=== PATIENT | male | born 1970 | race African-American/Black ===

== ENCOUNTER 2021-04-29 09:33 | Emergency (ER) | payer MEDICAID, SELFPAY ==
--- NOTE | ~2021-04-29 | CT_ITS ---
EXAMINATION: CT HEAD WITHOUT CONTRAST CLINICAL INFORMATION: Hand numbness COMPARISON: None TECHNIQUE: Contiguous axial imaging was performed from the skull base to vertex without intravenous administration of contrast. This CT examination was performed using dose optimization techniques as appropriate, variously including the following: *Automated exposure control *Adjustment of mA and/or kV according to patient size (this includes techniques or standardized protocols for targeted exams where dose is matched to indication/reason for exam; i.e. extremities or head) *Use of iterative reconstruction technique DLP: 782 mGy-cm FINDINGS: There is no evidence of acute intracranial hemorrhage or territorial infarction. No abnormal mass effect or midline shift is seen. [place] to white matter differentiation is well preserved. No extra-axial fluid collections are identified. The ventricles are normal in size. There is no abnormal attenuation within the brain parenchyma. The osseous structures and soft tissues are normal. There is small polyps or retention cysts bilateral maxillary sinus. Rest paranasal sinuses and mastoid air cells are well-aerated and clear. CT/CT head/brain wo con IMPRESSION: No acute intracranial process seen.
[2021-04-29 09:40] VITALS: BP 192/124; PULSE 102; RESP 22; TEMP 36.1; O2SAT 98; BMI 56.0
[2021-04-29 10:02] VITALS: BP 136/97; PULSE 95; RESP 14; O2SAT 97
[2021-04-29 10:43] LABS: Glucose, Whole Blood 329 mg/dL (60-115)
--- NOTE | 2021-04-29 10:55 | PC.NURSE ---
Pt alert and oriented x3, BP on triage was 192/124, current BP 136/97. Pt states he has been having non radiating numbness and tingling in bilat hands x1 month that has gotten progressively worse. He also states he has been having increased thirst and urination. Pt was on Lasix but has not taken it in greater than 6 months because current does not have a PCP. He also states He is on Hydralazine but is not consistent with taking it. His current POC is 329, he denies sob/difficulty breathing. no other symptoms reported. Pt difficult stick, IV established via ultra sound, labs drawn, fluids hung. Pt in no apparent distress. at bedside.
[2021-04-29 11:02] LABS: MANUAL DIFF FLAG NO
[2021-04-29 11:03] LABS: Basophils Percent Auto 0.5 % (0-2); Eosinophils Absolute Auto 0.1 X10*3/uL (0.0-0.4); Eosinophils Percent Auto 1.1 % (0-4); Hematocrit 46.3 % (42-52); Hemoglobin 14.9 g/dl (14.0-18.0); Imm Gran Abs Auto 0.06 X10*3/uL (0.00-0.03); Lymphocytes Absolute Auto 1.2 X10*3/uL (1.2-4.9); Lymphocytes Percent Auto 19.5 % (20-40); Mean Corpuscular HGB Conc 32.2 g/dl (31.0-36.0); Mean Corpuscular Hemoglobin 28.2 pg (27.0-33.0); Mean Corpuscular Volume 87.7 fL (80-98); Mean Platelet Volume 10.3 fL (9.4-12.4); Monocytes Absolute Auto 0.4 X10*3/uL (0.1-1.2); Monocytes Percent Auto 6.6 % (2-11); Neutrophils Absolute Auto 4.4 X10*3/uL (2.0-8.3); Neutrophils Percent Auto 71.3 % (45-73); Platelet Count 218 X10*3/uL (160-400); Red Blood Count 5.28 X10*6/uL (4.60-5.80); Red Cell Distribution Width 12.9 % (11.0-16.0); White Blood Count 6.2 X10*3/uL (4.8-10.8)
[2021-04-29 11:08] LABS: Prothrombin Time 11.3 SEC (9.9-13.0)
[2021-04-29 11:10] LABS: Partial Thromboplastin Time 34.3 SEC (24.1-38.0)
--- NOTE | 2021-04-29 11:14 | ED_ITS ---
HPI - Neuro Symptoms/Deficit General Chief Complaint: Neuro Symptoms/Deficit Stated Complaint: hand numbness Time Seen by Provider: 04/29/21 10:32 Source: patient Mode of arrival: ambulatory Limitations: no limitations History of Present Illness HPI Narrative: Patient presents to ED for bilateral hand numbness for 1 month. Patient states also increased thirst and increased urinary frequency. Patient also states sometimes he will have blurry vision over the past month. Patient states family history of diabetes and he was formal last year was borderline diabetic. Patient admits to being morbidly obese. Patient denies any slurred speech, loss of vision, paralysis of extremity, chest pain, or shortness of b reath. Related Data Previous Rx's Medication Instructions Recorded metformin 500 mg PO BID 30 Days #60 tab 04/29/21 Allergies Allergy/AdvReac Type Severity Reaction Status Date / Time Penicillins Allergy Unknown Verified 04/29/21 09:45 Review of Systems Review of Systems: Yes all other systems are reviewed and are negative Constitutional: Constitutional: Reports as per HPI and Reports no additional constitutional complaints Eyes: Eyes: Reports as per HPI, Reports no additional eye complaints and Reports blurry vision (Intermetent for the past month. None presently) ENT: Reports system reviewed and no additional complaints, except as documented and Reports as per HPI Cardiovascular: Cardiovascular: Reports as per HPI and Reports no additional cardiovascular complaints Respiratory: Respiratory: Reports as per HPI and Reports no additional respiratory complaints Gastrointestinal: Gastrointestinal: Reports as per HPI and Reports no additional gastrointestinal complaints Genitourinary: Genitourinary: Reports no additional male genitourinary complaints, Reports as per HPI and Reports urinary frequency (Increased) Musculoskeletal: Musculoskeletal: Reports no additional musculoskeletal complaints and Reports as per HPI Neurologic: Reports system reviewed and no additional complaints, except as documented and Reports as per HPI Psychiatric: Psychiatric: Reports no additional psychiatric complaints and Reports as per HPI PMF Past Medical History Medical History (Updated 04/29/21 @ 14:30 by JAMES Bhatt) High cholesterol HTN (hypertension) Estrella-Fernie syndrome Torn meniscus Social History Social History Alcohol intake: former Patient Tobacco Use Status: Former Tobacco user Advance Directives: Yes Advance Directives Information Provided: Yes Advance Directives on File: No Physical Exam Vital Signs: Vital Signs: Last Vital Signs Temp 96.9 F 04/29/21 09:40 Pulse 75 04/29/21 13:18 Resp 17 04/29/21 13:18 BP 125/85 04/29/21 13:18 Pulse Ox 96 04/29/21 13:18 Body Mass Index 56.0 Const: General: cooperative, healthy appearing, comfortable, no acute distress, well developed, alert and awake; No Physically active Orientation/consciousness: patient oriented x3 HENMT: Head: Yes normal to inspection, Yes No palpable skull fracture present, Yes normocephalic and Yes atraumatic Eyes: General: appearance normal, both eyes and all related structures Vi sual Loya: normal visual loya by confrontation Alignment and Position: alignment normal Periorbital: periorbital findings normal Eyelids: Yes eyelids normal Conjunctivae: conjunctivae normal Sclerae: sclerae normal Corneas: corneas normal Pupils: Equal, round and reactive pupils present Neck: Neck: Yes normal visual inspection, Yes full ROM, Yes no lymphadenopathy, Yes no meningeal signs, Yes trachea midline, Yes supple and No tender Chest: Chest palpation & inspection: normal inspection of the chest and normal palpation of entire chest wall Resp: Effort & Inspection: normal respiratory effort and able to speak in complete sentences Auscultation: clear to auscultation bilaterally Cardio: Jugular venous distension: no JVD Heart sounds: S1 normal heart sound present and S2 normal heart sound present GI: Inspection: Yes normal to inspection and No abdominal wall ecchymosis Palpation (GI): Soft to palpation, not firm, nontender, no guarding and not rigid : General: No CVA tenderness and Yes no CVA tenderness Back/Spine/Pelvis: Back: no CVA tenderness, No CVA tenderness and No back tend erness Skin: General skin exam: no rashes or lesions noted and elasticity normal Neuro: Other: Negative for facial droop. All extremities equal strength in 5+. Negative slurred speech. Negative pronator drift. [id number] and rapid hand movement intact. Negative Romberg. Patient has sensation to touch on palpation of both hands and all fingers. Capillary refills intact. Pulses intact. Upper extremities negative for swelling, redness, or edema. General: patient oriented x3, gait normal, no meningeal signs and CN's II-XI intact bilaterally Cranial nerves: Yes CN's II-XII intact bilaterally and Yes Equal, round and reactive pupils present Extrem: Other: All extremities normal size. All extremities motor/vascular/neuro exam is intact. Psych: Appearance: grossly normal, well kempt and not disheveled Course Course Course Narrative: Patient fingerstick is 349. Most likely patient has a new diabetic causing paresthesia and intermittent blurry vision for a month. Do labs neck should patient is not in DKA and will do head CT as a formality. CPK magnesium ordered. UA ordered. Reevaluation(s) Reevaluation #1: Patient feel CT shows hyperglycemia of 329. Patient given fluids. Patient's neuro exam is intact. Negative for any neuro deficits. EKG ordered. Acetone negative. Patient is not in DKA. Patient's electrolytes are normal. Patient not in rhabdomyolysis. EKG negative STEMI. Patient's troponin 5.8 after 1 month of numbness and tingling in bilateral upper extremities without any chest pain or shortness of breath. No need for repeat troponin. Not suspecting any heart attack. Negative for any neuro deficit. Time: 10:56 Reevaluation #2: Head CT came back normal. Patient will be discharged on metformin p.o.. Patient educated on proper diet to control diabetes. Patient informed assess to the to have pet counselor, rn patient services, and advertising material distributor due to his diagnosis of diabetes. Patient informed he will need to follow-up with his PCP to see if he needs more diabetes medications such as short-acting insulin. UA negative for UTI. Patient was hypertensive due to small size blood pressure cuff. Patient was a large man so large cuff was used and he had normal blood pressure and vital signs. Time: 14:25 MDM - Neuro Symptoms/Deficit MDM Narrative Medical decision making narrative: New onset diabetes. Diabetic neuropathy Lab Data Result diagrams: 04/29/21 10:56 04/29/21 10:56 Labs: Lab Results 04/29/21 04/29/21 04/29/21 Range/Units 10:39 10:56 10:56 WBC 6.2 (4.8-10.8) X10*3/uL RBC 5.28 (4.60-5.80) X10*6/uL Hgb 14.9 (14.0-18.0) g/dl Hct 46.3 (42-52) % MCV 87.7 (80-98) fL MCH 28.2 (27.0-33.0) pg MCHC 32.2 (31.0-36.0) g/dl RDW 12.9 (11.0-16.0) % Plt Count 218 (160-400) X10*3/uL MPV 10.3 (9.4-12.4) fL Immature Gran % (Auto) 1.0 H (0.0-0.4) % Neut % (Auto) 71.3 (45-73) % Lymph % (Auto) 19.5 L (20-40) % [place] % (Auto) 6.6 (2-11) % Eos % (Auto) 1.1 (0-4) % Baso % (Auto) 0.5 (0-2) % Lymph # (Auto) 1.2 (1.2-4.9) X10*3/uL [place] # (Auto) 0.4 (0.1-1.2) X10*3/uL Eos # (Auto) 0.1 (0.0-0.4) X10*3/uL Baso # (Auto) 0.0 (0.0-0.2) X10*3/uL Abs Immat Gran (auto) 0.06 H (0.00-0.03) X10*3/uL Absolute Neuts (auto) 4.4 (2.0-8.3) X10*3/uL Absolute Nucleated RBC 0.000 (0.0-0.012) X10*3/uL Nucleated RBC % (auto) 0.0 (0.0-0.2) /100WBC PT (9.9-13.0) SEC INR (0.9-1.1) APTT (24.1-38.0) SEC Sodium 138 (135-145) mmol/L Potassium 4.5 (3.3-5.1) mmol/L Chloride 103 (96-108) mmol/L Carbon Dioxide 25 (22-29) mmol/L Anion Gap 15 (12-20) BUN 10 (9-16) mg/dL Creatinine 1.01 (0.5-1.4) mg/dL Estim Creat Clear Calc 164.0 Estimated GFR > 60 POC Glucose 329 H (60-115) mg/dL Random Glucose 348 H (60-115) mg/dL Calcium 9.3 (8.4-10.2) mg/dL Magnesium 1.8 (1.6-2.6) mg/dL Total Bilirubin 0.8 (0.0-1.0) mg/dL AST 21 (5-37) U/L ALT 29 (0-40) U/L Alkaline Phosphatase 138 H (39-117) U/L Total Creatine Kinase 141 (38-174) U/L Troponin I High Sens (<3.5-35.0) ng/L Total Protein 7.2 (6.5-8.0) g/dL Albumin 4.3 (3.5-5.0) g/dL Urine Color Urine Appearance Urine pH (5.0-8.0) Ur Specific [place] (1.005-1.025) Urine Protein (NEG-TRACE) MG/DL Urine Glucose (UA) (NEG) MG/DL Urine Ketones (NEG) MG/DL Urine Blood (NEG) Urine Nitrite (NEG) Ur Leukocyte Esterase (NEG) Urine RBC (0) /HPF Urine WBC (0-4) /HPF Ur Squamous Epith Cells /LPF Urine Bacteria /LPF Acetone, Qual Negative (Negative) 04/29/21 04/29/21 04/29/21 Range/Units 10:56 10:56 11:49 WBC (4.8-10.8) X10*3/uL RBC (4.60-5.80) X10*6/uL Hgb (14.0-18.0) g/dl Hct (42-52) % MCV (80-98) fL MCH (27.0-33.0) pg MCHC (31.0-36.0) g/dl RDW (11.0-16.0) % Plt Count (160-400) X10*3/uL MPV (9.4-12.4) fL Immature Gran % (Auto) (0.0-0.4) % Neut % (Auto) (45-73) % Lymph % (Auto) (20-40) % [place] % (Auto) (2-11) % Eos % (Auto) (0-4) % Baso % (Auto) (0-2) % Lymph # (Auto) (1.2-4.9) X10*3/uL [place] # (Auto) (0.1-1.2) X10*3/uL Eos # (Auto) (0.0-0.4) X10*3/uL Baso # (Auto) (0.0-0.2) X10*3/uL Abs Immat Gran (auto) (0.00-0.03) X10*3/uL Absolute Neuts (auto) (2.0-8.3) X10*3/uL Absolute Nucleated RBC (0.0-0.012) X10*3/uL Nucleated RBC % (auto) (0.0-0.2) /100WBC PT 11.3 (9.9-13.0) SEC INR 1.0 (0.9-1.1) APTT 34.3 (24.1-38.0) SEC Sodium (135-145) mmol/L Potassium (3.3-5.1) mmol/L Chloride (96-108) mmol/L Carbon Dioxide (22-29) mmol/L Anion Gap (12-20) BUN (9-16) mg/dL Creatinine (0.5-1.4) mg/dL Estim Creat Clear Calc Estimated GFR POC Glucose (60-115) mg/dL Random Glucose (60-115) mg/dL Calcium (8.4-10.2) mg/dL Magnesium (1.6-2.6) mg/dL Total Bilirubin (0.0-1.0) mg/dL AST (5-37) U/L ALT (0-40) U/L Alkaline Phosphatase (39-117) U/L Total Creatine Kinase (38-174) U/L Troponin I High Sens 5.8 (<3.5-35.0) ng/L Total Protein (6.5-8.0) g/dL Albumin (3.5-5.0) g/dL Urine Color YELLOW Urine Appearance CLEAR Urine pH 6.0 (5.0-8.0) Ur Specific [place] 1.020 (1.005-1.025) Urine Protein NEG (NEG-TRACE) MG/DL Urine Glucose (UA) >=1000 H (NEG) MG/DL Urine Ketones NEG (NEG) MG/DL Urine Blood NEG (NEG) Urine Nitrite NEG (NEG) Ur Leukocyte Esterase NEG (NEG) Urine RBC 0 (0) /HPF Urine WBC 1-4 (0-4) /HPF Ur Squamous Epith Cells 2+ /LPF Urine Bacteria NONE /LPF Acetone, Qual (Negative) ECG Data Interpretation: Normal sinus rhythm. Reticular 84. Pr interval 178. QRS 94. QTC 465. Negative STEMI Discharge Plan Discharge Clinical Impression: Diabetes, Peripheral neuropathy Patient Disposition: Home, Self-Care Instructions: Diabetic Hyperglycemia (ED), Diabetes and Exercise (ED) Additional Instructions: Your blood work shows that you are a new onset diabetic. You will need metformin 500 mg b.i.d.. Please follow-up with your primary care provider for further management of your diabetes. Head CT scan came back negative for stroke. His labs came back negative for DKA. Blood work came back negative for any electrolyte abnormality or rhabdomyolysis. The urinalysis came back negative for urinary tract infection. Your EKG and blood work does not indicate heart attack. Return to the ED immediately for any chest pain, shortness of breath, dizziness, vomiting, fever, chills, blurry vision, wounds in the feet, abdominal pain, diarrhea, or any other concerning symptoms. Prescriptions: New metformin 500 mg tablet 500 mg PO BID 30 Days Qty: 60 RF: 0 Stand Alone Forms: Work/School Release Interventions: ED Discharge Assessment Last Done: 04/29/21 14:52 Discharge Date/Time: 04/29/21 14:52 Print Language: Ukrainian
[2021-04-29 11:21] VITALS: BP 132/84; PULSE 81; RESP 18; O2SAT 98
[2021-04-29 11:25] LABS: Acetone, serum QL Negative (Negative)
[2021-04-29 11:35] LABS: Alanine Aminotransferase 29 U/L (0-40); Albumin Level 4.3 g/dL (3.5-5.0); Alkaline Phosphatase 138 U/L (39-117); Anion Gap 15 (12-20); Aspartate Amino Transferase 21 U/L (5-37); Bilirubin Total 0.8 mg/dL (0.0-1.0); Blood Urea Nitrogen 10 mg/dL (9-16); Calcium 9.3 mg/dL (8.4-10.2); Carbon Dioxide 25 mmol/L (22-29); Chloride 103 mmol/L (96-108); Estimated Glomerular Filt Rate > 60; Glucose Random 348 mg/dL (60-115); Magnesium 1.8 mg/dL (1.6-2.6); Potassium 4.5 mmol/L (3.3-5.1); Sodium 138 mmol/L (135-145); Total Protein 7.2 g/dL (6.5-8.0)
[2021-04-29] MEDS: 0.9 % Sodium Chloride 1,000 ML 999 ML IV ×2 (11:38)
--- NOTE | 2021-04-29 11:40 | ECG_ITS ---
Test Reason : CP Blood Pressure : / mmHG Vent. Rate : 084 BPM Atrial Rate : 084 BPM P-R Int : 178 ms QRS Dur : 094 ms QT Int : 394 ms P-R-T Axes : 042 010 003 degrees QTc Int : 465 ms Normal sinus rhythm Minimal voltage criteria for LVH, may be normal variant Borderline ECG No previous ECGs available Referred By: Mihai Armijo Electronically Signed By:WOJCIECH JUAREZ
[2021-04-29 11:42] LABS: Troponin-I High Sensitivity 5.8 ng/L (<3.5-35.0)
[2021-04-29 12:25] LABS: Glucose Urine UA >=1000 MG/DL (NEG); Leukocyte Esterase Urine NEG (NEG); Nitrite Urine NEG (NEG); Urine Blood NEG (NEG); Urine Ketones NEG (NEG); Urine Protein NEG (NEG-TRACE)
[2021-04-29 12:32] LABS: Appearance Urine CLEAR; Color Urine YELLOW
[2021-04-29 12:54] LABS: RBC Urine 0 /HPF (0); Squamous Epithelial Cell Urine 2+ /LPF
[2021-04-29 13:18] VITALS: BP 125/85; PULSE 75; RESP 17; O2SAT 96
--- NOTE | 2021-04-29 13:20 | PC.NURSE ---
Fluids infusing, pt resting quietly, at bedside.
== END 2021-04-29 14:52 | disposition home or self-care (01) ==
PROVIDERS: Physician Assistant; Emergency Provider Emergency Medicine
DX: E11.40 Type 2 diabetes mellitus with diabetic neuropathy, unspecified (principal); I10 Essential (primary) hypertension; E78.5 Hyperlipidemia, unspecified; E66.01 Morbid (severe) obesity due to excess calories; L51.1 Stevens-Johnson syndrome; Z87.891 Personal history of nicotine dependence
CPT/HCPCS: 36415; 70450; 80053; 81001; 81003; 82009; 82550; 82947; 83735; 84484; 85025; 85610; 85730; 93005; 96360; 96361; 99284

== ENCOUNTER 2021-07-30 09:53 | Emergency (ER) | payer MEDICARE, MEDICAID, SELFPAY ==
--- NOTE | ~2021-07-30 | XR_ITS ---
EXAMINATION: BILATERAL KNEE X-RAY CLINICAL INFORMATION: Fall. Pain. COMPARISON: None TECHNIQUE: 4 views of each knee FINDINGS: Right: There is mild varus angulation at the knee joint. Bone alignment is otherwise normal. No fracture or dislocation is seen. 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 There is a small joint effusion. Left: There is mild varus angulation at the knee joint. Bone alignment is otherwise normal. No fracture or dislocation is seen. 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 There is a small joint effusion. There is soft tissue ossification posterior medial to the knee joint measuring 1.8 x 2.6 cm questionable for an ossified intra-articular loose body. XR/XR knee RT 4V IMPRESSION: No fracture or dislocation. Bilateral arthritis. Question ossified intra-articular loose body on the left.
--- NOTE | ~2021-07-30 | XR_ITS ---
EXAMINATION: BILATERAL KNEE X-RAY CLINICAL INFORMATION: Fall. Pain. COMPARISON: None TECHNIQUE: 4 views of each knee FINDINGS: Right: There is mild varus angulation at the knee joint. Bone alignment is otherwise normal. No fracture or dislocation is seen. 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 There is a small joint effusion. Left: There is mild varus angulation at the knee joint. Bone alignment is otherwise normal. No fracture or dislocation is seen. 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 There is a small joint effusion. There is soft tissue ossification posterior medial to the knee joint measuring 1.8 x 2.6 cm questionable for an ossified intra-articular loose body. XR/XR knee LT 4V IMPRESSION: No fracture or dislocation. Bilateral arthritis. Question ossified intra-articular loose body on the left.
--- NOTE | ~2021-07-30 | US_ITS ---
EXAMINATION: US VENOUS ULTRASOUND WITH DOPPLER LOWER EXTREMITY, LEFT CLINICAL INFORMATION: Left leg swelling. COMPARISON: None TECHNIQUE: Ultrasound of the deep veins is performed from the hip to the calf with compression sonography and color and pulse Doppler assessment. Spectral analysis with color-flow imaging is performed. FINDINGS: There is normal venous compression and respiratory variation and augmented flow. The visualized common femoral vein, superficial femoral vein, profunda femoral vein, popliteal vein, and the trifurcation region shows no evidence of deep venous thrombosis. There is no significant popliteal fossa cyst. There is a 5.9 x 2.3 x 3.8 cm complex fluid collection in the popliteal fossa with an adjacent 3.4 cm calcified structure. This corresponds to the lesion seen on x-ray. If the patient's symptoms persist, followup ultrasound in 5 days 7 days might be of value to exclude proximal propagation from a non-visualized calf vein. US/US venous duplex LE LT IMPRESSION: No DVT demonstrated in the left lower extremity. 5.9 x 2.3 x 3.8 cm complex fluid collection in the popliteal fossa with a 3.4 cm calcified structure. This corresponds to the lesion seen on x-ray. 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
--- NOTE | ~2021-07-30 | XR_ITS ---
EXAMINATION: XR CHEST CLINICAL INFORMATION: Shortness of breath on exertion. Swelling bilateral lower extremities. COMPARISON: None TECHNIQUE: Frontal view of the chest was obtained. FINDINGS: The cardiomediastinal silhouette is within normal limits for AP technique. No vascular congestion. No pulmonary edema. Lungs are hypoexpanded. No focal consolidation. XR/XR chest 1V IMPRESSION: Unremarkable examination.
[2021-07-30 10:43] VITALS: BP 181/115; PULSE 108; RESP 18; TEMP 36.7; O2SAT 96; BMI 54.1
--- NOTE | 2021-07-30 11:11 | ED_ITS ---
HPI - General Adult General Chief complaint: General Medical Stated complaint: swollen painful legs Time Seen by Provider: 07/30/21 11:00 Source: patient Mode of arrival: ambulatory Limitations: no limitations History of Present Illness HPI narrative: 50-year-old male past medical history significant for diabetes, o besity, HTN, neuropathy presents to the emergency department with multiple complaints, weakness, bilateral knee pain, increased lower extremity edema and shortness of breath on exertion X3 days and worsening. He states that this past Thursday 3 days ago he fell at home, he states he was walking today and he fell as though his right knee gave out on hand. He states he fell onto bilateral knees, he did not strike his head, did not lose consciousness. However, he states he felt so weak, he was unable to stand up from the ground. He states that took 3- 4 hours for him to get up from the ground. He has also noted that bilateral lower extremities have been progressively worsening in terms of swelling left worse than right. He states he is prescribed a water pill, however he is not compliant with his medications. He denies chest pain, nausea, vomiting, fevers, chills, abdominal pain, headache, vision changes. Onset (ago): day(s) (3) Location: left (knee) and right (knee) Radiation: non-radiation Severity: severe Severity scale (1-10): 10 Quality: constant Pain Consistency: constant Relieving factors: immobilization Exacerbating factors: movement Associated symptoms: shortness of breath and weakness Treatments prior to arrival: none Related Data Previous Rx's Medication Instructions Recorded metformin 500 mg tablet 500 mg PO BID 30 Days #60 tab 04/29/21 furosemide 40 mg tablet 40 mg PO DAILY #7 tab 07/30/21 Allergies Allergy/AdvReac Type Severity Reaction Status Date / Time Penicillins Allergy Unknown Verified 04/29/21 09:45 Review of Systems Review of Systems: Yes all other systems are reviewed and are negative PMFSH Past Medical History Attestation statement: The following information was validated with the patient. Source: old records reviewed and nursing notes reviewed Medical History Diabetes High cholesterol HTN (hypertension) Neuropathy Estrella-Fernie syndrome Torn meniscus Social History Social History Alcohol intake: former Patient Tobacco Use Status: Former Tobacco user Advance Directives: No Physical Exam Vital Signs: Vital Signs: Last Vital Signs Temp 98.0 F 07/30/21 10:43 Pulse 61 07/30/21 12:52 Resp 17 07/30/21 12:52 BP 130/85 07/30/21 12:54 Pulse Ox 96 07/30/21 10:43 Body Mass Index 54.1 Const: General: cooperative and no acute distress Nutritional Appearance: obese morbidly obese Orientation/consciousness: oriented to person and oriented to place Limitations: no limitations HENMT: Head: Yes normal to inspection, Yes normocephalic and Yes atraumatic Ears: external ears normal General nose exam: Normal external nose present Face and sinus: Yes normal facial exam Mouth: Normal oral and palatal mucosa present Throat: Yes posterior oropharynx normal Eyes: General: appearance normal, both eyes and all related structures Pupils: Equal, round and reactive pupils present Neck: Neck: Yes normal visual inspection, Yes no lymphadenopathy, Yes trachea midline and Yes supple Chest: Chest palpation & inspection: normal inspection of the chest and normal palpation of entire chest wall Resp: Effort & Inspection: normal respiratory effort and able to speak in comp lete sentences Auscultation: clear to auscultation bilaterally Cardio: Rate: regular rate Rhythm: regular rhythm Heart sounds: S1 normal heart sound present, S2 normal heart sound present and no murmurs GI: Inspection: Yes normal to inspection Palpation (GI): Soft to palpation, nontender and no guarding Auscultation: normal bowel sounds : General: Yes no CVA tenderness Back/Spine/Pelvis: Back: no CVA tenderness Skin: General skin exam: no rashes or lesions noted Neuro: General: oriented to person and oriented to place Cranial nerves: Yes CN's II-XII intact bilaterally and Yes Equal, round and reactive pupils present Cognition (Neuro): normal cognition Motor exam (neuro): 5/5 motor strength present throughout Extrem: Other: No overlying cellulites to b/l lower extremities. Limited ROM due to pain General: Yes normal to inspection, No full ROM (limited ROM to b/l knees due to pain ), Yes no calf tenderness, No calf tenderness and Yes edema (b /l from knee down 3+ non pitting edema L>R) Right upper extremity: normal to inspection and full ROM Left upper extremity: normal to inspection and full ROM Psych: Appearance: grossly normal Speech and movement: Normal speech and movement present Affect: normal affect Attitude: cooperative Thought process: Normal thought process present Thought content: Normal thought content present Course Course Course Narrative: 1300 Labs show no acute infection no anemia. CK 272 not concerning for rhabdo. Trop negative, BNP 40. Cxray normal Xray of b/l knees shows no fx or dislocations and shows a small joint effusion on R. knee. BP elevated, he was given lasix for edema and BP control. US negative for DVT shows L. Bakers cyst with calcified loose body Reevaluation(s) Reevaluation #1: Patient is ambulating well. He is feeling okay at this time. I have discussed his lab findings, his chest x-ray, his knee x-ray, in his left lower extremity ultrasound with the patient. He is clear and the plan. I also educated the patient on the importance of taking his medications as prescribed. He will be started on Lasix 40 mg for a week. He has been advised to stop his other diuretics, for a week. He can resume taking his home medications after he finishes Lasix. I have also advised this patient to follow-up with his primary care provider. Vital signs are stable, BP has improved 130/85. He is safe for discharge home with PCP follow-up. Medical Decision Making MDM Narrative Medical decision making narrative: 50-year-old male past medical history significant for hypertension, diabetes, morbid obesity, neuropathy presents to the emergency department with 3 days of progressively worsening bilateral knee pain status post fall, weakness, shortness of breath on exertion and bilateral lower extremity swelling. He states he fell, because his right knee gave out on him, he states this happens often. He states he fell in bilateral knees, he did not hit his head. He is not on blood thinners. He has medication noncompliance. Upon physical examination there is swelling to bilateral lower extremities 3+ nonpitting edema, without overlying cellulitis, not concerning for infection. He has no calf tenderness, negative Homans sign. There is limited range of motion to bilateral knees due to pain. Lungs are clear to auscultation, 5/5 strength upper and lower extremities. No focal neuro deficits. Head is atraumatic normocephalic. Plan at this time is to obtain a CBC, CMP, CK, UA, BNP, troponin, x-ray of bilateral knees, x-ray of chest, ultrasound of left lower extremity. Lab Data Result diagrams: 07/30/21 11:34 07/30/21 11:34 Labs: Lab Results 07/30/21 07/30/21 07/30/21 Range/Units 11:34 11:34 12:15 WBC 5.8 (4.8-10.8) X10*3/uL RBC 4.86 (4.60-5.80) X10*6/uL Hgb 13.8 L (14.0-18.0) g/dl Hct 42.6 (42-52) % MCV 87.7 (80-98) fL MCH 28.4 (27.0-33.0) pg MCHC 32.4 (31.0-36.0) g/dl RDW 13.1 (11.0-16.0) % Plt Count 223 (160-400) X10*3/uL MPV 10.2 (9.4-12.4) fL Immature Gran % (Auto) 0.3 (0.0-0.4) % Neut % (Auto) 67.8 (45-73) % Lymph % (Auto) 21.3 (20-40) % [place] % (Auto) 7.7 (2-11) % Eos % (Auto) 2.6 (0-4) % Baso % (Auto) 0.3 (0-2) % Lymph # (Auto) 1.2 (1.2-4.9) X10*3/uL [place] # (Auto) 0.5 (0.1-1.2) X10*3/uL Eos # (Auto) 0.2 (0.0-0.4) X10*3/uL Baso # (Auto) 0.0 (0.0-0.2) X10*3/uL Abs Immat Gran (auto) 0.02 (0.00-0.03) X10*3/uL Absolute Neuts (auto) 3.9 (2.0-8.3) X10*3/uL Absolute Nucleated RBC 0.000 (0.0-0.012) X10*3/uL Nucleated RBC % (auto) 0.0 (0.0-0.2) /100WBC Sodium 138 (135-145) mmol/L Potassium 4.5 (3.3-5.1) mmol/L Chloride 107 (96-108) mmol/L Carbon Dioxide 23 (22-29) mmol/L Anion Gap 13 (12-20) BUN 10 (9-16) mg/dL Creatinine 0.78 (0.5-1.4) mg/dL Estim Creat Clear Calc 208.1 Estimated GFR > 60 Random Glucose 174 H D (60-115) mg/dL Calcium 8.8 (8.4-10.2) mg/dL Total Bilirubin 1.1 H (0.0-1.0) mg/dL AST 24 (5-37) U/L ALT 18 (0-40) U/L Alkaline Phosphatase 104 D (39-117) U/L Total Creatine Kinase 272 H D (38-174) U/L Troponin I High Sens (<3.5-35.0) ng/L B-Natriuretic Peptide 40 (<100) pg/mL Total Protein 6.6 (6.5-8.0) g/dL Albumin 3.9 (3.5-5.0) g/dL 07/30/21 Range/Units 12:15 WBC (4.8-10.8) X10*3/uL RBC (4.60-5.80) X10*6/uL Hgb (14.0-18.0) g/dl Hct (42-52) % MCV (80-98) fL MCH (27.0-33.0) pg MCHC (31.0-36.0) g/dl RDW (11.0-16.0) % Plt Count (160-400) X10*3/uL MPV (9.4-12.4) fL Immature Gran % (Auto) (0.0-0.4) % Neut % (Auto) (45-73) % Lymph % (Auto) (20-40) % [place] % (Auto) (2-11) % Eos % (Auto) (0-4) % Baso % (Auto) (0-2) % Lymph # (Auto) (1.2-4.9) X10*3/uL [place] # (Auto) (0.1-1.2) X10*3/uL Eos # (Auto) (0.0-0.4) X10*3/uL Baso # (Auto) (0.0-0.2) X10*3/uL Abs Immat Gran (auto) (0.00-0.03) X10*3/uL Absolute Neuts (auto) (2.0-8.3) X10*3/uL Absolute Nucleated RBC (0.0-0.012) X10*3/uL Nucleated RBC % (auto) (0.0-0.2) /100WBC Sodium (135-145) mmol/L Potassium (3.3-5.1) mmol/L Chloride (96-108) mmol/L Carbon Dioxide (22-29) mmol/L Anion Gap (12-20) BUN (9-16) mg/dL Creatinine (0.5-1.4) mg/dL Estim Creat Clear Calc Estimated GFR Random Glucose (60-115) mg/dL Calcium (8.4-10.2) mg/dL Total Bilirubin (0.0-1.0) mg/dL AST (5-37) U/L ALT (0-40) U/L Alkaline Phosphatase (39-117) U/L Total Creatine Kinase (38-174) U/L Troponin I High Sens < 3.5 (<3.5-35.0) ng/L B-Natriuretic Peptide (<100) pg/mL Total Protein (6.5-8.0) g/dL Albumin (3.5-5.0) g/dL Imaging Data Bilateral Knee Xray : Attestation: I personally reviewed and interpreted this imaging study as follows: Radiologist's impression: FINDINGS: Right: There is mild varus angulation at the knee joint. Bone alignment is otherwise normal. No fracture or dislocation is seen. 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 There is a small joint effusion. Left: There is mild varus angulation at the knee joint. Bone alignment is otherwise normal. No fracture or dislocation is seen. 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 There is a small joint effusion. There is soft tissue ossification posterior medial to the knee joint measuring 1.8 x 2.6 cm questionable for an ossified intra-articular loose body. XR/XR knee RT 4V IMPRESSION: No fracture or dislocation. Bilateral arthritis. Question ossified intra-articular loose body on the left.? Chest x-ray: Attestation: I personally reviewed and interpreted this imaging study as follows: Radiologist's impression: FINDINGS: The cardiomediastinal silhouette is within normal limits for AP technique. No vascular congestion. No pulmonary edema. Lungs are hypoexpanded. No focal consolidation. XR/XR chest 1V IMPRESSION: Unremarkable examination. Left lower extremity ultrasound: Radiologist's impression: FINDINGS: There is normal venous compression and respiratory variation and augmented flow. The visualized common femoral vein, superficial femoral vein, profunda femoral vein, popliteal vein, and the trifurcation region shows no evidence of deep venous thrombosis. ? There is no significant popliteal fossa cyst. There is a 5.9 x 2.3 x 3.8 cm complex fluid collection in the popliteal fossa with an adjacent 3.4 cm calcified structure. This corresponds to the lesion seen on x-ray. If the patient's symptoms persist, followup ultrasound in 5 days 7 days might be of value to exclude proximal propagation from a non-visualized calf vein. US/US venous duplex LE LT IMPRESSION: No DVT demonstrated in the left lower extremity. ? 5.9 x 2.3 x 3.8 cm complex fluid collection in the popliteal fossa with a 3.4 cm calcified structure. This corresponds to the lesion seen on x-ray. 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 ECG Data Attestation: I personally reviewed and interpreted this ECG as follows: Prior ECG tracings: available for review Interpretation: Ventricular rate of 65, TX interval normal, QRS normal, QT/QTC normal. No ST elevation, or T-wave inversions. No acute ischemia. EKG shows normal sinus rhythm with sinus arrhythmia. No acute findings when compared to EKG from April 29, 2021. Discharge Plan Discharge Clinical Impression: Weakness, Hypertension, Fall, Bilateral edema of lower extremity, Andersen cyst Patient Disposition: Home, Self-Care Instructions: Leg Edema (ED), Weakness (ED), DASH Eating Plan (ED), Hypertension (ED), Edema (ED) Additional Instructions: Follow up with PCP in two days Stop taking her hydrochlorothiazide, and your other diuretic. Start taking Lasix 40 mg once a day for a week. Once your done taking Lasix for a week, restart your normal medications. Weigh yourself, and keep track of any weight gain or weight loss. Return to the ED with new or worsening symptoms Prescriptions: New furosemide 40 mg tablet 40 mg PO DAILY Qty: 7 RF: 0 No Action metformin 500 mg tablet 500 mg PO BID 30 Days Qty: 60 RF: 0 Referrals: Physician,Unknown J [Primary Care Provider] - 2 days Stand Alone Forms: Work/School Release Interventions: ED Discharge Assessment Last Done: 07/30/21 14:42 Discharge Date/Time: 07/30/21 14:42
--- NOTE | 2021-07-30 11:12 | ECG_ITS ---
Test Reason : CP Blood Pressure : / mmHG Vent. Rate : 065 BPM Atrial Rate : 065 BPM P-R Int : 174 ms QRS Dur : 094 ms QT Int : 422 ms P-R-T Axes : 033 009 -06 degrees QTc Int : 438 ms Normal sinus rhythm with sinus arrhythmia Normal ECG Heart rate has decreased Referred By: Mustapha Dominguez Electronically Signed By:BOBBY HOUSTON MD
[2021-07-30 11:40] LABS: MANUAL DIFF FLAG NO
[2021-07-30 11:41] LABS: Basophils Percent Auto 0.3 % (0-2); Eosinophils Absolute Auto 0.2 X10*3/uL (0.0-0.4); Eosinophils Percent Auto 2.6 % (0-4); Hematocrit 42.6 % (42-52); Hemoglobin 13.8 g/dl (14.0-18.0); Imm Gran Abs Auto 0.02 X10*3/uL (0.00-0.03); Imm Gran Pct Auto 0.3 % (0.0-0.4); Lymphocytes Absolute Auto 1.2 X10*3/uL (1.2-4.9); Lymphocytes Percent Auto 21.3 % (20-40); Mean Corpuscular HGB Conc 32.4 g/dl (31.0-36.0); Mean Corpuscular Hemoglobin 28.4 pg (27.0-33.0); Mean Corpuscular Volume 87.7 fL (80-98); Mean Platelet Volume 10.2 fL (9.4-12.4); Monocytes Absolute Auto 0.5 X10*3/uL (0.1-1.2); Monocytes Percent Auto 7.7 % (2-11); Neutrophils Absolute Auto 3.9 X10*3/uL (2.0-8.3); Neutrophils Percent Auto 67.8 % (45-73); Platelet Count 223 X10*3/uL (160-400); Red Blood Count 4.86 X10*6/uL (4.60-5.80); Red Cell Distribution Width 13.1 % (11.0-16.0); White Blood Count 5.8 X10*3/uL (4.8-10.8)
[2021-07-30 12:05] LABS: Alanine Aminotransferase 18 U/L (0-40); Albumin Level 3.9 g/dL (3.5-5.0); Alkaline Phosphatase 104 U/L (39-117); Anion Gap 13 (12-20); Aspartate Amino Transferase 24 U/L (5-37); Bilirubin Total 1.1 mg/dL (0.0-1.0); Blood Urea Nitrogen 10 mg/dL (9-16); Calcium 8.8 mg/dL (8.4-10.2); Carbon Dioxide 23 mmol/L (22-29); Chloride 107 mmol/L (96-108); Creatinine Clr Calc Pharmacy 208.1; Estimated Glomerular Filt Rate > 60; Glucose Random 174 mg/dL (60-115); Potassium 4.5 mmol/L (3.3-5.1); Sodium 138 mmol/L (135-145); Total Protein 6.6 g/dL (6.5-8.0)
[2021-07-30 12:45] LABS: Troponin-I High Sensitivity < 3.5 ng/L (<3.5-35.0)
[2021-07-30 12:46] LABS: B Type Natriuretic Peptide 40 pg/mL (<100)
[2021-07-30 12:52] VITALS: PULSE 61; RESP 17
[2021-07-30] MEDS: Furosemide 40 MG TABLET 60 MG PO (12:53)
[2021-07-30 12:54] VITALS: BP 130/85
== END 2021-07-30 14:42 | disposition home or self-care (01) ==
PROVIDERS: Emergency Provider Emergency Medicine Emergency Medical Services
DX: R60.0 Localized edema (principal); M71.22 Synovial cyst of popliteal space [Baker], left knee; R53.1 Weakness; R06.02 Shortness of breath; I10 Essential (primary) hypertension; E11.9 Type 2 diabetes mellitus without complications; E66.01 Morbid (severe) obesity due to excess calories
CPT/HCPCS: 36415; 71045; 73564; 80053; 82550; 83880; 84484; 85025; 93005; 93971; 99284

== ENCOUNTER 2021-09-18 08:31 | Emergency (ER) | payer MEDICARE, MEDICAID, SELFPAY ==
--- NOTE | ~2021-09-18 | XR_ITS ---
EXAMINATION: XR KNEE, RIGHT CLINICAL INFORMATION: Right knee pain status post fall COMPARISON: July 30, 2021 TECHNIQUE: Four views of the right knee. FINDINGS: There is no evidence of acute fracture or dislocation of the right knee. There is loss of the medial joint space compartment with marginal spurring and sclerosis. There is severe degenerative change of the patella prominent spurring, narrowing of joint space, and articular irregularity. No significant effusion is appreciated. There is some prominent cortical thickening anterior and posteriorly about the proximal tibia. No destructive bony lesions. XR/XR knee RT 4V IMPRESSION: Severe degenerative joint disease of the right knee involving the patellofemoral joint and medial joint space compartment. No acute fracture or significant effusion.
[2021-09-18 08:36] VITALS: BP 166/110; PULSE 90; O2SAT 99
[2021-09-18 08:38] VITALS: BP 155/90; PULSE 81; RESP 16; TEMP 36.7; O2SAT 99; BMI 54.5
--- NOTE | 2021-09-18 09:13 | ED.LOWEXIN ---
HPI - Extremity Injury (Lower) General Chief Complaint: Extremity Injury, Lower Stated Complaint: KNEE PAIN AND INJURY S/P FALL Time Seen by Provider: 09/18/21 08:40 Source: patient Mode of arrival: EMS Limitations: no limitations History of Present Illness HPI Narrative: 50-year-old male past medical history significant for hypertension, obesity and diabetes presents the emergency department with right knee pain since this morning. Patient tells me that he was walking out of his building, any suddenly felt like his knee was going to give out on him, he tells me that his knee gave out, he fell, grabbing onto a pole and slowly lowering himself to the ground, he tells me that he rotated his knee, and since then he has not been able to bear weight on the right knee. He tells me he has significant history with his right knee, he tells me he is followed by orthopedics to use to inject cortisone shots to the area, and they have advised him that he needs a knee replacement. Patient tells me that he is not on blood thinners, when he fell he did not hit his head or lose consciousness. He denies dizziness, chest pain, shortness of breath, fevers, chills, nausea, vomiting, abdominal pain. He had no preceding symptoms. No numbness or tingling. MD complaint: knee injury (right ) Onset (ago): hour(s) (1) Type of Injury: inversion Place: home Severity: severe Severity scale (1-10): 10 Relieving factors: nothing Exacerbating factors: weight bearing and movement Context: fall Associated symptoms: unable to bear weight Other symptoms: none Related Data Previous Rx's Medication Instructions Recorded metformin 500 mg tablet 500 mg PO BID 30 Days #60 tab 04/29/21 furosemide 40 mg tablet 40 mg PO DAILY #7 tab 07/30/21 oxycodone 5 mg tablet 5 mg PO Q8H PRN #8 tab 09/18/21 Allergies Allergy/AdvReac Type Severity Reaction Status Date / Time Penicillins Allergy Unknown Verified 04/29/21 09:45 Review of Systems Review of Systems: Constitutional : No Weight loss, No Fever, No Chills, No Fatigue, No Malaise ENT/Mouth : No sore throat, No Rhinorrhea Eyes: No Eye Pain, No Swelling, No Redness Cardiovascular : No Chest Pain, No SOB, No Dyspnea on Exertion, No Orthopnea, No Edema, No Palpitations Respiratory : No Cough, No Sputum, No Wheezing Gastrointestinal : No Nausea, No Vomiting, No Diarrhea, No Constipation, No abdominal Pain, No Hematochezia, No Melena Genitourinary : No Dysuria, No Urinary Frequency, No Hematuria, Musculoskeletal : + joint pain, No Myalgias, No Joint Swelling Skin : No Skin Lesions, No rash Neuro : No Weakness, No Numbness, No Dizziness, No Headache All other systems reviewed and are negative Yes all other systems are reviewed and are negative REPLACED BY [facility] Past Medical History Attestation statement: The following information was validated with the patient. Source: old records reviewed and nursing notes reviewed Medical History Diabetes High cholesterol HTN (hypertension) Neuropathy Estrella-Fernie syndrome Torn meniscus Social History Social History Alcohol intake: former Patient Tobacco Use Status: Former Tobacco user Advance Directives: No Advance Directives Information Provided: No Physical Exam Vital Signs: Vital Signs: Last Vital Signs Temp 98.0 F 09/18/21 08:38 Pulse 81 09/18/21 08:38 Resp 16 09/18/21 08:38 BP 155/90 H 09/18/21 08:38 Pulse Ox 99 09/18/21 08:38 BMI result Body Mass Index 54.5 VSS noted to be slightly hypertensive Appearance: Alert.? Oriented X3.? No acute distress.? Head: Normocephalic, atraumatic, no step-offs or deformities Neck: Normal inspection.? Neck supple.? CVS: Normal heart rate and rhythm.? Pulses normal.? Respiratory: No respiratory distress.? Breath sounds normal.? Abdomen: Soft and nontender.? Skin: Skin warm and dry.? Normal skin color.? Normal skin turgor.? Extremities:No lower extremity edema. 5/5 strength to bilateral upper and lower extremity. + pain with range of motion of right knee, no pain with palpation, no step-offs or deformities or overlying skin changes. Left knee within normal limits. Back: No midline tenderness, no C-spine tenderness, full range of motion, no CVA tenderness bilaterally Neuro: Oriented X 3.? No motor deficit.? No sensory deficit. Course Reevaluation(s) Reevaluation #1: Patient's is at the bedside who tells me that she does not feel comfortable sending the patient home as patient lives on a 2nd floor, and he is unable to walk up the stairs. She tells me this is not the 1st time that his knee has given out on him and he has fallen. She is tearful in tells me that she just does not feel like she is able to take care of him. For this reason after patient is medically cleared I will put in a case management and PT evaluation. Time: 09:18 Reevaluation #2: X-ray of the right knee reveals no fractures or dislocations. It does however show severe degenerative disease. I have told patient that I cannot rule out ligament or tendon injury with a x-ray. I have advised him to follow-up with orthopedics and his PCP. At this time patient has been medically cleared this is likely knee strain secondary to a fall. I will place patient in physician observation to allow more time for patient to be seen by Case Management and Physical therapy to discuss the possibility for short-term rehab. At time that physician observation was started patient's vital signs were stable. And patient was complaining of right knee pain that was well controlled with oxycodone 5 mg p.o. Time: 10:24 MDM - Extremity Injury (Lower) MDM Narrative Medical decision making narrative: 899 50-year-old male past medical history significant for obesity, hypertension, diabetes presents to the emergency department status post fall with right-sided knee pain. Patient tells me that he is a patient is doing good Orthopedics, he has received multiple cortisone injections to the right knee, he has been advised to get a knee replacement. Physical examination significant for pain with range of motion of right knee, no pain with palpation, no step-offs or deformities. No evident ligament/tendon involvement. Plan at this time is to obtain an x-ray of the right knee, and apply an Artem wrap. Patient will be given oxycodone for pain. Medical Records Attestation: I reviewed the patient's medical records. Lab Data Attestation: I reviewed the patient's lab results. Imaging Data Right Knee Xray : Attestation: I personally reviewed and interpreted this imaging study as follows: Radiologist's impression: XR/XR knee RT 4V IMPRESSION: Severe degenerative joint disease of the right knee involving the patellofemoral joint and medial joint space compartment. ? No acute fracture or significant effusion. Critical Care Time Critical Care Time Critical Care Time: No Discharge Plan Discharge Clinical Impression: Knee pain, right, Fall, Knee strain Patient Disposition: Home, Self-Care Instructions: Knee Pain (ED), Fall Prevention (ED), R.I.C.E. Treatment (ED) Additional Instructions: Take your medications as prescribed. If you were prescribed antibiotics today, it is important that you take your medication to their entirety, do not skip any doses, do not finish them early. Today you tested positive for COVID-19. Take Ibuprofen or Tylenol as needed for fevers or body aches. Quarantine for 14 days if you are not vaccinated or for 10 days if you are vaccinated. Drink plenty of fluids. Follow-up with your primary care provider this week. Follow up with [facility]. Return to the emergency department with new or worsening symptoms. In case of emergency call 911 I attest that I have reviewed patients [place], and at the time prescribing the patient a controlled substance is appropriate based off of patients diagnosis and treatment plan. Prescriptions: New oxycodone 5 mg tablet 5 mg PO Q8H PRN (Reason: pain) Qty: 8 RF: 0 No [facility] metformin 500 mg tablet 500 mg PO BID 30 Days Qty: 60 RF: 0 furosemide 40 mg tablet 40 mg PO DAILY Qty: 7 RF: 0 Referrals: Physician,Unknown J [Primary Care Provider] - 2 days
[2021-09-18] MEDS: oxyCODONE HCl Immed Release 5 MG TABLET PO ×2 (09:44→22:15)
[2021-09-18 11:24] VITALS: BP 155/90; PULSE 81; O2SAT 99
[2021-09-18 11:38] VITALS: BP 159/105; PULSE 89; RESP 20; TEMP 36.4; O2SAT 98
[2021-09-18 15:10] VITALS: BP 127/82; PULSE 85; RESP 16; TEMP 37; O2SAT 98
--- NOTE | 2021-09-18 15:41 | MHC.CM.ED ---
Received case management consult from Francisca RAMIREZ. Patient came to the ER due to knee pain. Work up essentially negative. Physical therapy eval completed. Short term rehab is recommended. Met with patient and , Shalom, in regards to discharge planning. Patient lives with , started using a cane for mobility recently, and had no services prior to coming to the ER. PCP is at [facility]. HCP completed, signed and witnessed. Original given to patient. Patient received Moderna vaccines on 04/05 and 05/06. Acute rehab and jail facility lists provided from [facility]. Acute rehab is 1st choice. Referrals made to all 3 acute rehabs. [facility] unable to offer a bed. Still waiting to hear from [facility]. Continue to monitor for d/c needs.
[2021-09-18 15:45] LABS: Influenza A PCR NEGATIVE (Negative); Influenza B PCR NEGATIVE (Negative); Resp Syncy Virus RNA Qual PCR NEGATIVE (Negative); SARS COV2 PCR INHOUSE NEGATIVE (Negative)
--- NOTE | 2021-09-18 17:39 | MHC.CM.ED ---
Pt aware that 3 area acute rehabs are unable to offer a bed. 12 referrals placed locally for STR. Pt agreeable. Will stay overnight. Pending bed offers in am. Pt needs bariatric bed. Pt weighs 446 lbs. CM will follow for d/c needs.
--- NOTE | 2021-09-18 18:02 | PHA.MEDREC ---
Pharmacy Consult ? Medication Reconciliation Pharmacy has completed the medication reconciliation.
[2021-09-18 20:23] LABS: Glucose, Whole Blood 114 mg/dL (60-115)
[2021-09-18] MEDS: Gabapentin 300 MG CAPSULE PO (21:28)
[2021-09-18] MEDS: guaiFENesin DM 200/20/10 ML 10 ML SYRUP PO (21:28)
[2021-09-18 22:51] VITALS: BP 136/82; PULSE 84; RESP 17; TEMP 37.3; O2SAT 96
[2021-09-18 23:08] LABS: Glucose, Whole Blood 145 mg/dL (60-115)
--- NOTE | 2021-09-18 23:48 | PC.NURSE ---
pt a&o, denies any sob or chest pain. pt assist with urinal to bed. will continue to monitor.
[2021-09-19 02:59] VITALS: BP 138/85; PULSE 75; RESP 16; TEMP 36.7; O2SAT 94
--- NOTE | 2021-09-19 04:44 | PC.NURSE ---
pt sleeping with distress at this time.
--- NOTE | 2021-09-19 09:22 | MHC.CM.ED ---
Patient remains in ER. At this time, [facility] is the only facility that has officially offered a bed. Spoke with patient's , Shalom via telephone at [phone]. Facility choices are: 1)[place] 2)[facility] 3)[facility] nursing. Continue to monitor for d/c needs.
[2021-09-19 11:21] VITALS: BP 156/106; PULSE 84
[2021-09-19] MEDS: Gabapentin 300 MG CAPSULE PO ×2 (11:21→15:15)
[2021-09-19] MEDS: dilTIAZem HCL CD 180 MG CAP.ER.24H PO (11:21)
[2021-09-19] MEDS: hydroCHLOROthiazide 25 MG TABLET PO (11:21)
--- NOTE | 2021-09-19 13:43 | MHC.CM.ED ---
[facility] is able to offer a bed. Patient an leave at 3pm. [facility] booked. Med nec with chart. Patient, , and Dr Celeste aware. Continue to monitor for d/c needs.
[2021-09-19 14:00] VITALS: BP 155/81; PULSE 86; RESP 20; O2SAT 95
--- NOTE | 2021-09-19 18:06 | MHC.CM.ED ---
Received a call from Angelic at [facility] regarding this patient. Apparently, the bariatric bed they were expecting for this patient did not arrive and they do not expect one tonight. Per Angelic, this patient will need to return to [facility] ED, as they cannot safely care for this patient tonight. Angelic given CM contact information. Will call back tonight if arrangements have been made for timing of bed delivery. If not, CM will reach out to facility in am. They are still accepting this patient, just waiting for bed delivery. Clinical Coordinator Kandy, zeyad.
== END 2021-09-19 17:26 | disposition skilled nursing facility (03) ==
PROVIDERS: Physician Assistant; Emergency Provider Emergency Medicine; PCP Physician Assistant
DX: S86.911A Strain of unspecified muscle(s) and tendon(s) at lower leg level, right leg, initial encounter (principal); M17.11 Unilateral primary osteoarthritis, right knee; I10 Essential (primary) hypertension; E11.9 Type 2 diabetes mellitus without complications; W19.XXXA Unspecified fall, initial encounter; Y93.01 Activity, walking, marching and hiking; Y92.9 Unspecified place or not applicable; Y99.9 Unspecified external cause status; Z20.822 Contact with and (suspected) exposure to COVID-19
CPT/HCPCS: 0241U; 36415; 73564; 82947; 97163; 99285

== ENCOUNTER 2021-09-19 18:44 | Emergency (ER) | payer MEDICAID, SELFPAY ==
[2021-09-19 19:05] VITALS: BP 140/92; PULSE 79; RESP 16; TEMP 36.9; O2SAT 95; BMI 53.1
[2021-09-19 19:06] VITALS: BP 140/92; PULSE 79; RESP 20; TEMP 36.9; O2SAT 96
[2021-09-19] MEDS: Acetaminophen 325 MG TABLET 975 MG PO (22:10)
[2021-09-19 22:12] VITALS: BP 151/79; PULSE 98; RESP 16
--- NOTE | 2021-09-19 22:50 | MHC.CM.ED ---
DALILA received a T/C from Angelic at [facility] ([phone]) informing CM that they do not have a bariatric bed and they will be sending this patient back to the ED. Angelic tells CM that the facility expected the bed to be delivered and there was not a bed available for them. She expects one tomorrow and they are still accepting this patient. CM to call Angelic in the morning to arrange a time to transport pt to [facility] when bed available. CM to follow for d/c needs.
[2021-09-20 00:42] VITALS: RESP 16
--- NOTE | 2021-09-20 01:49 | ED_ITS ---
HPI - General Adult General Chief complaint: General Medical <Mustapha Dominguez MD - Last Filed: 09/20/21 02:07> Stated complaint: SENT BACK FROM SNF D/T NO BARIATRIC BED AVAIL YET <Mustapha Dominguez MD - Last Filed: 09/20/21 02:07> Time Seen by Provider: 09/19/21 22:04 <Mustapha Dominguez MD - Last Filed: 09/20/21 02:07> Source: patient <Mustapha Dominguez MD - Last Filed: 09/20/21 02:07> Mode of arrival: EMS <Mustapha Dominguez MD - Last Filed: 09/20/21 02:07> Limitations: no limitations <Mustapha Dominguez MD - Last Filed: 09/20/21 02:07> History of Present Illness HPI narrative: 50-year-old male who was here in the emergency department for a fall with injury to his right knee on 09/18/2021. Patient was not able to bear weight after the fall. The patient's workup in the emergency department was unremarkable however the patient could not go home since he lives on the 2nd floor and was unable to walk up stairs. The patient was evaluated by Case Management and was transferred to [facility] on 09/19/2021 at 3:00 p.m.. Apparently when he got to the half-way facility they were unable to care for him since they did not have a bariatric bed and sent him back to the emergency department. Patient states that he is still having pain in his right knee. He states the pain is moderate to severe in intensity and is a sharp pain which is worse with movement. He knee is wrapped with an Artem wrap and he believes that the Artem wrap is helping with his discomfort. <Mustapha Dominguez MD - Last Filed: 09/20/21 02:07> Related Data Home medications: Home Medications Medication Instructions Recorded Confirmed dapagliflozin 10 mg tablet 1 tab PO DAILY 09/18/21 09/20/21 ([facility]) diltiazem HCl 180 mg 1 cap PO DAILY 09/18/21 09/20/21 capsule,extended release 24 hr gabapentin 300 mg capsule 1 cap PO TID 09/18/21 09/20/21 hydrochlorothiazide 25 mg tablet 1 tab PO DAILY 09/18/21 09/20/21 <Mustapha Dominguez MD - Last Filed: 09/20/21 02:07> Allergies/adverse reactions: Allergies Allergy/AdvReac Type Severity Reaction Status Date / Time Penicillins Allergy Unknown Verified 04/29/21 09:45 <Mustapha Dominguez MD - Last Filed: 09/20/21 02:07> Review of Systems Review of Systems: Yes all other systems are reviewed and are negative <Mustapah Dominguez MD - Last Filed: 09/20/21 02:07> [facility] Past Medical History Medical History: Medical History Diabetes High cholesterol HTN (hypertension) Neuropathy Estrella-Fernie syndrome Torn meniscus <Mustapha Dominguez MD - Last Filed: 09/20/21 02:07> Social History Social History: Social History Alcohol intake: former Patient Tobacco Use Status: Former Tobacco user Use of substances other than those prescribed or required for medical reasons: No Advance Directives: No <Mustapha Dominguez MD - Last Filed: 09/20/21 02:07> Physical Exam Vital Signs: Vital Signs: Last Vital Signs Temp 98.0 F 09/20/21 07:32 Pulse 79 09/20/21 09:31 Resp 16 09/20/21 07:32 BP 142/95 H 09/20/21 09:31 Pulse Ox 97 09/20/21 07:32 BMI result Body Mass Index 53.1 <Mustapha Dominguez MD - Last Filed: 09/20/21 02:07> Vital Signs: Last Vital Signs Temp 98.0 F 09/20/21 07:32 Pulse 79 09/20/21 09:31 Resp 16 09/20/21 07:32 BP 142/95 H 09/20/21 09:31 Pulse Ox 97 09/20/21 07:32 BMI result Body Mass Index 53.1 <Anastasia Oliveira NP - Last Filed: 09/20/21 10:43> Const: Other: Very pleasant and cooperative male patient, he does not appear t o be in distress, he answers all questions appropriately. <Mustapha Dominguez MD - Last Filed: 09/20/21 02:07> HENMT: Head: Yes normal to inspection, Yes normocephalic and Yes atraumatic <Mustapha Dominguez MD - Last Filed: 09/20/21 02:07> Ears: external ears normal <Mustapha Dominguez MD - Last Filed: 09/20/21 02:07> General nose exam: Normal external nose present <Mustapha Dominguez MD - Last Filed: 09/20/21 02:07> Face and sinus: Yes normal facial exam <Mustapha Dominguez MD - Last Filed: 09/20/21 02:07> Mouth: Normal oral and palatal mucosa present <Mustapha Dominguez MD - Last Filed: 09/20/21 02:07> Throat: Yes posterior oropharynx normal <Mustapha Dominguez MD - Last Filed: 09/20/21 02:07> Eyes: General: appearance normal, both eyes and all related structures <Mustapha Dominguez MD - Last Filed: 09/20/21 02:07> Pupils: Equal, round and reactive pupils present <MD Shashi Patton Last Filed: 09/20/21 02:07> Neck: Neck: Yes normal visual inspection, Yes no lymphadenopathy, Yes trachea midline and Yes supple <Mustapha Dominguez MD - Last Filed: 09/20/21 02:07> Chest: Chest palpation & inspection: normal inspection of the chest and normal palpation of entire chest wall <Mustapha Dominguez MD - Last Filed: 09/20/21 02:07> Resp: Effort & Inspection: normal respiratory effort and able to speak in complete sentences <MD Shashi Patton Last Filed: 09/20/21 02:07> Auscultation: clear to auscultation bilaterally <MD Shashi Patton Last Filed: 09/20/21 02:07> Cardio: Rate: regular rate <Mustapha Dominguez MD - Last Filed: 09/20/21 02:07> Rhythm: regular rhythm <Mustapha Dominguez MD - Last Filed: 09/20/21 02:07> Heart sounds: S1 normal heart sound present, S2 normal heart sound present and no murmurs <Mustapha Dominguez MD - Last Filed: 09/20/21 02:07> GI: Inspection: Yes normal to inspection and Yes obesity <Mustapha Dominguez MD - Last Filed: 09/20/21 02:07> Palpation (GI): Soft to palpation, nontender and no guarding <Mustapha Dominguez MD - Last Filed: 09/20/21 02:07> Auscultation: normal bowel sounds <Mustapha Dominguez MD - Last Filed: 09/20/21 02:07> : General: Yes no CVA tenderness <Mustapha Dominguez MD - Last Filed: 09/20/21 02:07> Back/Spine/Pelvis: Back: no CVA tenderness <Mustapha Dominguez MD - Last Filed: 09/20/21 02:07> Skin: General skin exam: no rashes or lesions noted <Mustapha Dominguez MD - Last Filed: 09/20/21 02:07> Neuro: Cranial nerves: Yes CN's II-XII intact bilaterally and Yes Equal, round and reactive pupils present <Mustapha Dominguez MD - Last Filed: 09/20/21 02:07> Cognition (Neuro): normal cognition <Mustapha Dominguez MD - Last Filed: 09/20/21 02:07> Motor exam (neuro): 5/5 motor strength present throughout <Mustapha Dominguez MD - Last Filed: 09/20/21 02:07> Extrem: Other: Right knee is wrapped in Artem wrap, he does have tenderness with palpation, his extremities neurovascular intact. <Mustapha Dominguez MD - Last Filed: 09/20/21 02:07> Psych: Appearance: grossly normal <Mustapha Dominguez MD - Last Filed: 02:07> Speech and movement: Normal speech and movement present <Mustapha Dominguez MD - Last Filed: 09/20/21 02:07> Affect: normal affect <Mustapha Dominguez MD - Last Filed: 09/20/21 02:07> Attitude: cooperative <Mustapha Dominguez MD - Last Filed: 09/20/21 02:07> Thought process: Normal thought process present <Mustapha Dominguez MD - Last Filed: 09/20/21 02:07> Thought content: Normal thought content present <Mustapha Dominguez MD - Last Filed: 09/20/21 02:07> Course Course Course Narrative: 50-year-old male with history of morbid obesity who was seen here in the emergency department on 09/28/2021 after a slip and fall with injury to his right knee. Patient's workup was unremarkable, patient was referred to a half-way facility however they did not have a bariatric bed and they sent the patient back to the emergency department. Patient's examination is consistent with right knee sprain which is causing his pain was initially given Tylenol 975 mg orally. He was also ordered to get oxycodone 10 mg orally. The patient's outpatient medications will be ordered and the patient will be kept in the emergency department until he can be transferred back to the half-way facility 0200: Physician observation started at 0200. Patient placed in physician observation because the patient needed more time for medication to work and re- evaluation by case management for placement in a half-way facility At the time observation was started the patient's vitals were stable, patient is alert and oriented he is complaining of pain secondary to his right knee injury. The patient's medications were reconciled and I did order his outpatient medicines. He was also ordered to get oxycodone 10 mg every 4 hours as needed for pain and Tylenol 975 mg every 6 hours as needed for pain. Neuro nonfocal, CV RRR, Lungs clear. <Mustapha Dominguez MD - Last Filed: 09/20/21 02:07> 50-year-old male with history of morbid obesity who was seen here in the emergency department on 09/28/2021 after a slip and fall with injury to his right knee. Patient's workup was unremarkable, patient was referred to a half-way facility however they did not have a bariatric bed and they sent the patient back to the emergency department. Patient's examination is consistent with right knee sprain which is causing his pain was initially given Tylenol 975 mg orally. He was also ordered to get oxycodone 10 mg orally. The patient's outpatient medications will be ordered and the patient will be kept in the emergency department until he can be transferred back to the half-way facility 0200: Physician observation started at 0200. Patient placed in physician observation because the patient needed more time for medication to work and re- evaluation by case management for placement in a half-way facility At the time observation was started the patient's vitals were stable, patient is alert and oriented he is complaining of pain secondary to his right knee injury. The patient's medications were reconciled and I did order his outpatient medicines. He was also ordered to get oxycodone 10 mg every 4 hours as needed for pain and Tylenol 975 mg every 6 hours as needed for pain. Neuro nonfocal, CV RRR, Lungs clear. 1045-informed by case checker that the patient now has a bariatric bed available for him. Plan for transfer or today <Anastasia Oliveira NP - Last Filed: 09/20/21 10:43> Medical Decision Making Lab Data Labs: Lab Results 09/20/21 Range/Units 07:27 POC Glucose 140 H (60-115) mg/dL <Mustapha Dominguez MD - Last Filed: 09/20/21 02:07> Lab Results 09/20/21 Range/Units 07:27 POC Glucose 140 H (60-115) mg/dL <Anastasia Oliveira NP - Last Filed: 09/20/21 10:43> Discharge Plan Discharge Clinical Impression: Right knee sprain <Mustapha Dominguez MD - Last Filed: 09/20/21 02:07> Patient Disposition: [facility] <Mustapha Dominguez MD - Last Filed: 09/20/21 02:07> Transfer Details: [place] <Mustapha Dominguez MD - Last Filed: 09/20/21 02:07> [place] <Anastasia Oliveira NP - Last Filed: 09/20/21 10:43> Instructions: Knee Sprain (ED) <Mustapha Dominguez MD - Last Filed: 09/20/21 02:07> Prescriptions: No [facility] diltiazem HCl 180 mg capsule,extended release 24hr 1 cap PO DAILY RF: 0 gabapentin 300 mg capsule 1 cap PO TID RF: 0 Farxiga 10 mg tablet 1 tab PO DAILY RF: 0 hydrochlorothiazide 25 mg tablet 1 tab PO DAILY RF: 0 <Mustapha Dominguez MD - Last Filed: 09/20/21 02:07>
[2021-09-20] MEDS: oxyCODONE HCl Immed Release 5 MG TABLET 10 MG PO (02:38)
[2021-09-20] MEDS: Gabapentin 300 MG CAPSULE PO ×2 (02:38→09:32)
[2021-09-20 07:32] VITALS: BP 123/86; PULSE 77; RESP 16; TEMP 36.7; O2SAT 97
[2021-09-20 07:34] LABS: Glucose, Whole Blood 140 mg/dL (60-115)
[2021-09-20 09:30] VITALS: BP 142/95; PULSE 79
[2021-09-20 09:31] VITALS: BP 142/95; PULSE 79
[2021-09-20] MEDS: dilTIAZem HCL CD 180 MG CAP.ER.24H PO (09:31)
[2021-09-20] MEDS: hydroCHLOROthiazide 25 MG TABLET PO (09:31)
--- NOTE | 2021-09-20 12:28 | MHC.CM.PN ---
i spoke kiesha torrez today from [facility], she tells me they have the appropriate bed for patient that just arrived there. pt is leaving [facility] at 12 noon [facility]. pt's is aware of this dc plan. rn and pa are aware this dc plan.
== END 2021-09-20 13:00 | disposition skilled nursing facility (03) ==
PROVIDERS: Emergency Provider Emergency Medicine Emergency Medical Services
DX: M25.561 Pain in right knee (principal); S83.91XD Sprain of unspecified site of right knee, subsequent encounter; W19.XXXD Unspecified fall, subsequent encounter
CPT/HCPCS: 82947; 99285